=== PATIENT | male | born 1980 | race Caucasian/White ===

== ENCOUNTER 2016-05-31 19:46 | Emergency (ER) | payer OTHER ==
[~2016-05-31] VITALS: Ht 177.8 cm; Wt 88.5 kg
[2016-05-31 20:08] VITALS: BP 132/81
[2016-05-31 20:49] LABS: ABSOLUTE BASOPHIL COUNT 0.1 /CUMM (0.0-0.2); ABSOLUTE EOSINOPHIL COUNT 0.2 /CUMM (0.0-0.7); ABSOLUTE GRANULOCYTE CT 3.6 /CUMM (1.4-6.5); ABSOLUTE LYMPH COUNT 3.5 /CUMM (1.2-3.4); ABSOLUTE MONOCYTE COUNT 0.9 /CUMM (0.10-0.60); BASOPHIL % 0.8 % (0.0-2.0); EOSINOPHIL % 2.6 % (0-5); GRANULOCYTE % 43.5 % (42.2-75.2); HEMATOCRIT 44.8 % (42-52); MEAN CORPUSCULAR HGB CONC 34.2 G/DL (33.0-37.0); MEAN CORPUSCULAR VOLUME 90.6 FL (80.0-94.0); MEAN PLATELET VOLUME 9.2 FL (7.4-10.4); PLATELET COUNT 233 /CUMM (130-400); RBC DISTRIBUTION WIDTH 12.6 % (11.5-14.5); RED BLOOD CELL CT 4.95 /CUMM (4.70-6.10); WHITE BLOOD CELL COUNT 8.3 /CUMM (4.8-10.8)
[2016-05-31] MEDS ORDERED: ALPRAZOLAM0.5 M4 PO (21:01)
--- NOTE | 2016-05-31 21:01 | ED GI/GU/ABDOMINAL COMPLAINT ---
History of Present Illness General Chief Complaint: General Adult Stated Complaint: KIDNEY STONES NECK PAIN Source: patient Exam Limitations: no limitations Vital Signs & Intake/Output Vital Signs & Intake/Output Vital Signs Date Time Temp Pulse Resp B/P Pulse O2 O2 Flow FiO2 Ox Delivery Rate 05/31 2141 100 Room Air 06/01 2007 99.1 75 18 132/81 96 Room Air Allergies Coded Allergies: NO KNOWN ALLERGIES (08/30/10) Reconcile Medications Alprazolam 0.5 MG TABLET 0.25 TAB PO PRN ANXIETY (Reported) Lactobacillus Acidophilus (Probiotic) (Unknown Strength) CAPSULE (Unknown Dose ) PO DAILY PROBIOTIC (Reported) Triage Note: RECEIVED 35 YO MALE WITH HX OF KIDNEY STONES C/O HE FEELS LIKE HE IS CHOKING AFTER HE EATS X 2 WEEKS. PT ALSO C/O SOMETING IS ON HIS L TESTICLE X ONE WEEK. PAIN AND SWELLING ON TOP OF LEFT TESTICLE. PT REPORTS CHOKING SENSATION IS GOING AWAY. PAIN IS WORSE DURING URINATION Triage Nurses Notes Reviewed? yes HPI: this patient is a 35-year-old male who presented to the emergency department today for evaluation of multiple complaints. The patient reported that approximately 2 weeks ago he began having symptoms of, "I feel exam choking one hour after eating food." The patient's significant other at the bedside reported that one hour after eating his face turns red and he looks like he is choking. He reported that the symptoms have been getting better over the last 2 weeks. He also reported that over the last week he has noticed a nonpainful bump on the outside of his left testicle. He reported that he gets bigger and smaller intermittently. He denied any urethral drainage or lesions. The patient also reported that he was recently diagnosed with multiple kidney stones bilaterally. He reported that he recently passed a couple of them. He denied any urinary symptoms at this time. No fevers, chills, chest or shortness of breath. Past History Travel History Traveled to [place] past 21 day No Medical History Any Pertinent Medical History? see below for history Neurological: NONE EENT: NONE Cardiovascular: NONE Respiratory: NONE Gastrointestinal: NONE Hepatic: NONE Renal: nephrolithiasis Musculoskeletal: NONE Psychiatric: NONE Endocrine: NONE Blood Disorders: NONE Cancer(s): NONE Surgical History Surgical History: non-contributory Psychosocial History What is your primary language Amharic Tobacco Use: Quit >30 days ago Family History Hx Contributory? No Review of Systems Review of Systems Constitutional: Reports: no symptoms. EENTM: Reports: no symptoms. Respiratory: Reports: no symptoms. Cardiovascular: Reports: no symptoms. GI: Reports: see HPI. Genitourinary: Reports: see HPI. Musculoskeletal: Reports: no symptoms. Skin: Reports: no symptoms. Neurological/Psychological: Reports: no symptoms. All Other Systems: Reviewed and Negative Physical Exam Physical Exam Gastrointestinal: normal bowel sounds, soft, non-tender, no organomegaly Comments: Well-developed well-nourished person in no acute distress HEENT: Normal EENT exam, moist mucous membranes, head normocephalic Pupils equally round and reactive to light. Neck: Supple, no lymphadenopathy. No midline tenderness Back: Normal gait. No midline tenderness. No CVA tenderness Cardiovascular: Regular rate and rhythm with no murmurs Respiratory: No respiratory distress. Speaking in full sentences Genital examination: Normal external genitalia with no lesions or edema. No urethral discharge. Extremity: Normal and equal pulses Neuro: Alert oriented x3, motor sensory normal, cranial nerves II through XII grossly intact. Skin: No appreciable rash on exposed skin, skin is warm and dry. Psych: Mood and affect is normal, memory and judgment is normal. Core Measures ACS in differential dx? No Severe Sepsis Present: No Septic Shock Present: No Progress Differential Diagnosis: epididymitis, orchitis, prostatitis, pyelonephritis, STD , testicular torsion, ureterolithiasis, urinary retention, urethritis, UTI/pyelo , hydrocele, spermatocele, achalasia Plan of Care: Orders Procedure Date/time Status CULTURE,URINE 05/31 2030 Active COMPREHENSIVE METABOLIC PANEL 05/31 2030 Complete CBC WITHOUT DIFFERENTIAL 05/31 2030 Complete URINALYSIS 06/01 2011 Complete Laboratory Tests 05/31/162034: Anion Gap 11, Estimated GFR > 60, BUN/Creatinine Ratio 13.8, Glucose 89, Calcium 10.0, Total Bilirubin 1.2, AST 30, ALT 50, Alkaline Phosphatase 78, Total Protein 7.7, Albumin 4.7, Globulin 3.0, Albumin/Globulin Ratio 1.6, CBC w Diff NO MAN DIFF REQ, RBC 4.95, MCV 90.6, MCH 31.0, RDW 12.6, MPV 9.2, Gran % 43.5, Lymphocytes % 42.7, Monocytes % 10.4 H, Eosinophils % 2.6, Basophils % 0.8, Absolute Granulocytes 3.6, Absolute Lymphocytes 3.5 H, Absolute Monocytes 0.9 H, Absolute Eosinophils 0.2, Absolute Basophils 0.1, PUBS MCHC 34.2, Urine Color YEL, Urine Clarity CLEAR, Urine pH 6.5, Ur Specific [place] 1.020, Urine Protein NEG, Urine Ketones NEG, Urine Nitrite NEG, Urine Bilirubin NEG, Urine Urobilinogen 1.0, Ur Leukocyte Esterase NEG, Ur Microscopic EXAM NOT REQUIRED, Urine Hemoglobin NEG, Urine Glucose NEG Microbiology 05/31 2034 URINE ROUT: Urine Culture - RECD Initial ED EKG: none Departure Departure Disposition: HOME OR SELF CARE Condition: Stable Clinical Impression Primary Impression: Lesion of testis Referrals: CHRIS VALDES,PARUL Coleman (PCP/Family) LAUREL VALDES,HARVEY MORE MD,JOVON Gracia Additional Instructions: Please follow up with the replanting machine crewman's information has been provided to you in this packet for further evaluation. You have been provided with an outpatient order form for a testicular ultrasound any; you may call the central scheduling number at the bottom of the form to schedule your appointment. Please follow-up with the urologist whose information has been provided to you in this packet as well. Return to the emergency department for any worsening symptoms or concerns. Departure Forms: Customer Survey General Discharge Information outpatient order form for a testicular ultrasound any; you may call the central scheduling number at the bottom of the form to schedule your appointment. Please follow-up with the urologist whose information has been provided to you in this packet as well. Return to the emergency department for any worsening symptoms or concerns. Departure Forms: Customer Survey General Discharge Information
[2016-05-31] MEDS ORDERED: PROBIOTIC1 EACH PO (21:03)
== END 2016-05-31 21:42 ==
LOC: ERH 19:46
PROVIDERS: Physician Assistant
DX: L98.9 Disorder of the skin and subcutaneous tissue, unspecified (principal)
CPT/HCPCS: 81003; 87086; 96360